=== PATIENT | female | born 1950 | race Caucasian/White ===

== ENCOUNTER 2024-01-24 08:00 | Day surgery (SDC) | payer OTHER ==
[2024-01-20 11:43] VITALS: BMI 21.4
[2024-01-24] MEDS ORDERED: PROPOFOL 160 ML ONE (08:05)
[2024-01-24] MEDS ORDERED: LIDOCAINE HCL/PF 2% SDV 5ML VIAL ONE (08:05)
[2024-01-24 08:16] VITALS: RESP 18
[2024-01-24] MEDS ORDERED: MIDAZOLAM HCL 2 MG/2 ML SINGLE DOSE VIAL ONE (08:27)
[2024-01-24 09:09] VITALS: TEMP 97.8
[2024-01-24 09:47] VITALS: BP 123/61; PULSE 65
== END 2024-01-24 09:45 | disposition home or self-care (01) ==
LOC: FASU-ENDO 08:00
PROVIDERS: ATTEND Internal Medicine Gastroenterology
PROC: 0DJD8ZZ Inspection of Lower Intestinal Tract, Via Natural or Artificial Opening Endoscopic (ICD-10-PCS; principal; 2024-01-24 08:35)
DX: Z12.11 Encounter for screening for malignant neoplasm of colon (principal); K64.0 First degree hemorrhoids; K64.8 Other hemorrhoids